=== PATIENT | male | born 1965 | race Caucasian/White ===

== ENCOUNTER 2021-09-24 15:05 | Outpatient (CLI) | payer OTHER, SELFPAY ==
--- NOTE | 2021-09-24 15:31 | XRR_ITS ---
PROCEDURE INFORMATION: Exam: XR Chest Exam date and time: 09/24/2021 3:31 PM Age: 56 years old Clinical indication: Condition or disease; Lung condition and disease; Pneumonia; Patient HX: Covid positive jul 2021; Additional info: Wheeze, pneumonia TECHNIQUE: Imaging protocol: XR of the chest. Views: 2 views. COMPARISON: No relevant prior studies available. FINDINGS: Lungs: Right hilar atelectasis versus minimal infiltrate. Pleural spaces: Unremarkable. No pleural effusion. No pneumothorax. Heart/Mediastinum: Unremarkable. No cardiomegaly. Bones/joints: Unremarkable. XR/XR chest 2V* [id number] IMPRESSION: Right hilar atelectasis versus minimal infiltrate.
== END 2021-09-24 15:06 | disposition home or self-care (01) ==
PROVIDERS: PCP Nurse Practitioner Family; Visit Provider Nurse Practitioner Family
DX: R06.2 Wheezing (principal)
CPT/HCPCS: 71046

== ENCOUNTER → 2021-11-14 13:49 | Outpatient (BNVA) | payer OTHER, SELFPAY | PROVIDERS: PCP Nurse Practitioner Family; Visit Provider Internal Medicine Critical Care Medicine | DX: R06.02 Shortness of breath (principal) | CPT/HCPCS: 71046; 80053; 82785; 85025; 86003 ==

== ENCOUNTER → 2023-02-24 09:13 | Outpatient (BNVA) | payer OTHER, SELFPAY | PROVIDERS: PCP Nurse Practitioner Family; Referring Provider Nurse Practitioner Family; Visit Provider Physician Assistant | DX: S49.91XA Unspecified injury of right shoulder and upper arm, initial encounter; W01.198A Fall on same level from slipping, tripping and stumbling with subsequent striking against other object, initial encounter; M48.02 Spinal stenosis, cervical region; M47.812 Spondylosis without myelopathy or radiculopathy, cervical region; Y92.73 Farm field as the place of occurrence of the external cause; Z86.39 Personal history of other endocrine, nutritional and metabolic disease | CPT/HCPCS: 72050; 73030 ==

== ENCOUNTER 2023-04-02 14:18 | Outpatient (CLI) | payer OTHER, SELFPAY ==
--- NOTE | 2023-04-02 16:30 | MR_ITS ---
WS: [id number] MRI RIGHT SHOULDER HISTORY: Pain and injury. Limited range of motion. COMPARISON: Radiographs 02/24/2023 TECHNIQUE: Multiplanar sequences of the shoulder joint are submitted. Severe AC joint arthritis. Narrowing of the joint space with hypertrophic osteophytes extending super ior and inferior from the distal clavicle. Osteophytes encroach upon the myotendinous region of the s upraspinatus. There is also mild subacromial impingement by an osteophyte from the distal undersurfac e of the acromion. Small amount of fluid in the subacromial and subdeltoid bursa. Biceps tendon appea rs appropriately positioned. No os acromion. Fracture involving the posterior, lateral and superior humeral head. Loss of the normal contour of th e humeral head with cortical and trabecular injury. There is a focal defect in the humeral head. Only a small amount of residual edema. There is adjacent fluid. Previously described calcifications in th e distal rotator cuff are not as well visualized by MRI. There is a 6.6 mm probable calcific density or avulsion fracture adjacent to the fracture site. Moderate tendinopathy in the distal supraspinatus tendon. There is encroachment by osteophytes from t he clavicle and acromion upon the supraspinatus. There is fluid at the attachment site of the suprasp inatus associated with the fracture. Suspect there is probably a small insertion site supraspinatus t endon tear associated with the fracture. No rotator cuff atrophy or edema. Mild narrowing of the krista cohumeral interval causing encroachment and impingement upon the distal subscapularis tendon. There i s intrasubstance degeneration in the anterior labrum. No definite tear is identified. Superior labrum is significantly obscured by motion. No Bankart lesion identified. IMPRESSION: 1. 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 2. Mild subacromial impingement. 3. Subacute fracture involving the posterior superolateral humeral head with involvement of the ilana x and trabecula. Nondisplaced. Fracture site involves the insertion of the supraspinatus tendon. 4. Moderate supraspinatus tendinopathy with additional insertion site tear suspected at the fracture site. 5. Calcific tendinitis involving the rotator cuff tendons is not as well-visualized as on the recent radiographs. 6. Intrasubstance degeneration in the anterior labrum. No tear identified.
== END 2023-04-02 14:19 | disposition home or self-care (01) ==
PROVIDERS: PCP Nurse Practitioner Family; Visit Provider Physician Assistant
DX: S42.294A Other nondisplaced fracture of upper end of right humerus, initial encounter for closed fracture (principal); X58.XXXA Exposure to other specified factors, initial encounter; M19.011 Primary osteoarthritis, right shoulder; M25.811 Other specified joint disorders, right shoulder; M75.31 Calcific tendinitis of right shoulder
CPT/HCPCS: 73221

== ENCOUNTER 2023-05-05 06:00 | Outpatient (RCR) | payer OTHER, SELFPAY | END 2023-05-26 23:59 | disposition home or self-care (01) | LOC: TPT 06:00 | PROVIDERS: Visit Provider Student in an Organized Health Care Education/Training Program | DX: M75.121 Complete rotator cuff tear or rupture of right shoulder, not specified as traumatic (principal) | CPT/HCPCS: 97110; 97162 ==

== ENCOUNTER 2023-05-27 06:00 | Outpatient (RCR) | payer OTHER, SELFPAY | END 2023-06-25 23:59 | disposition home or self-care (01) | LOC: TPT 06:00 | PROVIDERS: Visit Provider Student in an Organized Health Care Education/Training Program | DX: M75.121 Complete rotator cuff tear or rupture of right shoulder, not specified as traumatic (principal) | CPT/HCPCS: 97110 ==